=== PATIENT | male | born 1985 | race Caucasian/White ===

== ENCOUNTER 2017-09-11 19:15 | Emergency (ER) | payer BC, OTHER ==
[2017-09-11 19:47] VITALS: BP 155/94
[2017-09-11] MEDS ORDERED: Azithromycin TAB* 250 MG PO ONE (21:29)
--- NOTE | 2017-09-11 21:29 | UC ---
Throat Pain/Nasal [place] HPI - HPI Summary HPI Summary: Pt c/o nasal congestion, cough, sore throat, PND, chills and generalized malaise. - History of Current Complaint Chief Complaint: UCRespiratory Stated Complaint: ST, COUGH Time Seen by Provider: 09/11/17 21:19 Hx Obtained From: Patient Onset/Duration: Gradual Onset, Lasting Days Severity: Moderate Cough: Nonproductive Associated Signs & Symptoms: Positive: Dysphagia - Epiglottits Risk Factors Epiglottis Risk Factors: Negative - Allergies/Home Medications Allergies/Adverse Reactions: Allergies Allergy/AdvReac Type Severity Reaction Status Date / Time Amoxicillin Allergy Intermediate Rash Verified 09/11/17 19:41 PMH/Surg Hx/FS Hx/Imm Hx Previously Healthy: Yes - Surgical History Surgical History: Yes Surgery Procedure, Year, and Place: SHOULDER SURGERY - Family History Known Family History: Positive: Cardiac Disease - Social History Occupation: Employed Full-time Lives: With Family Alcohol Use: Occasionally Substance Use Type: None Smoking Status (MU): Never Smoked Tobacco Have You Smoked in the Last Year: No - Immunization History Most Recent Influenza Vaccination: NONE 2017 Review of Systems Constitutional: Chills, Fatigue Skin: Negative Eyes: Negative ENT: Sore Throat, Sinus Congestion Respiratory: Cough Cardiovascular: Negative Gastrointestinal: Negative Genitourinary: Negative Motor: Negative Neurovascular: Negative Musculoskeletal: Negative Neurological: Negative Psychological: Negative Is Patient Immunocompromised?: No All Other Systems Reviewed And Are Negative: Yes Physical Exam Triage Information Reviewed: Yes Appearance: Ill-Appearing Vital Signs: Initial Vital Signs Temp 99.8 F 09/11/17 19:42 Pulse 109 09/11/17 19:42 Resp 16 09/11/17 19:42 BP 155/94 09/11/17 19:42 Pulse Ox 99 09/11/17 19:42 Vital Signs Reviewed: Yes Eye Exam: Normal ENT: Positive: Nasal congestion, Tonsillar swelling Dental Exam: Normal Neck exam: Normal Neck: Positive: 1 Respiratory Exam: Normal Cardiovascular Exam: Normal Abdominal Exam: Normal Musculoskeletal Exam: Normal Neurological Exam: Normal Psychological Exam: Normal Skin Exam: Normal Throat Pain/Nasal Course/Dx - Differential Dx/Diagnosis Differential Diagnosis/HQI/PQRI: Tonsillitis, URI Provider Diagnoses: strep throat Discharge - Discharge Plan Condition: Stable Disposition: HOME Prescriptions: Azithromycin [Azithromycin 500 MG TAB] 500 mg PO DAILY #4 tab Patient Education Materials: Strep Throat (ED) Referrals: No Primary Care Phys,NOPCP [Primary Care Provider] - If Needed
== END 2017-09-11 21:37 | disposition home or self-care (01) ==
LOC: UCCORT 19:15
DX: J02.0 Streptococcal pharyngitis (principal); Z88.1 Allergy status to other antibiotic agents
CPT/HCPCS: 87651; 99202; A9270-GY; G0463

== ENCOUNTER 2018-12-29 19:23 | Emergency (ER) | payer BC, OTHER ==
--- NOTE | 2018-12-29 20:40 | UC ---
Eye Complaint HPI - HPI Summary HPI Summary: Per building code inspector "seen by opthalmology 12/26/18 for right eye redness, dx'd with bacterial conjuctivitis, treated with Polytrim eye drops, pt lost eye drops but refilled them 12/28 am, using drops q4h, no h/o injury, no corneal abrasion reported by MD, pt called opthalmology today, was given Rx for an eye drop with steroid in it but pt hasn't started yet, also was told to be re- evaluated for sepsis -continues to have redness of right eye, fever started today; otherwise feels well" -admits that Dr Milligan may have told him to go to the ER but did not specify which one. -son has sinus infection +mild body aches -appetite is fine. -sx are now starting on left eye as well. - History of Current Complaint Chief Complaint: UCEye Stated Complaint: RIGHT EYE COMPLAINT Time Seen by Provider: 12/29/18 20:29 Pain Intensity: 4 - Allergies/Home Medications Allergies/Adverse Reactions: Allergies Allergy/AdvReac Type Severity Reaction Status Date / Time amoxicillin Allergy Intermediate Rash Verified 12/29/18 20:14 Home Medications: Home Medications Polymyx/Trimethoprim OPTH* [Polytrim OPHTH*] 1 drop RIGHT EYE Q4H 12/29/18 [ History Confirmed 12/29/18] PMH/Surg Hx/FS Hx/Imm Hx Previously Healthy: Yes - Surgical History Surgical History: Yes Surgery Procedure, Year, and Place: SHOULDER SURGERY - Family History Known Family History: Positive: Cardiac Disease - Social History Alcohol Use: Occasionally Substance Use Type: None Smoking Status (MU): Never Smoked Tobacco Have You Smoked in the Last Year: No - Immunization History Most Recent Influenza Vaccination: NONE 2016 Review of Systems All Other Systems Reviewed And Are Negative: Yes Constitutional: Positive: Negative Skin: Positive: Negative Eyes: Positive: Blurred Vision, Drainage, Eye Redness, Other - no pain with moving his eyes. drops have helped soothe the pain ENT: Positive: Sore Throat Respiratory: Positive: Negative. Negative: Shortness Of Breath, Cough Cardiovascular: Positive: Negative Gastrointestinal: Positive: Negative Genitourinary: Positive: Negative Motor: Positive: Negative Neurovascular: Positive: Negative Musculoskeletal: Positive: Negative Neurological: Positive: Negative Psychological: Positive: Negative Is Patient Immunocompromised?: No Physical Exam Triage Information Reviewed: Yes Appearance: Well-Appearing, No Pain Distress, Well-Nourished Vital Signs: Initial Vital Signs Temp 100.5 F 12/29/18 20:07 Pulse 98 12/29/18 20:07 Resp 18 12/29/18 20:07 BP 135/101 12/29/18 20:07 Pulse Ox 100 12/29/18 20:07 Vital Signs Reviewed: Yes Eyes: Positive: Conjunctiva Inflamed - significant scleraal erythema entire eye on right, mild on left. EOMI. PERRL. + watery dc. ENT Exam: Normal ENT: Positive: Pharynx normal, TMs normal Dental Exam: Normal Neck exam: Normal Neck: Positive: Supple, Nontender Respiratory Exam: Normal, Other Respiratory: Positive: Lungs clear, Normal breath sounds, No respiratory distress, No accessory muscle use. Negative: Crackles, Rhonchi, Stridor, Wheezing Cardiovascular Exam: Normal Cardiovascular: Positive: RRR, No Murmur Abdomen Description: Positive: Nontender, Soft Musculoskeletal Exam: Normal Neurological Exam: Normal Psychological Exam: Normal Skin Exam: Normal Eye Complaint Course/Dx - Course Course Of Treatment: Rapid flu to r/o cause of body aches. negative. - recommend ER for eval for sepsis per his accounts receivable associate Dr Milligan. - elevated Blood pressure needs to be re-eval by a PCP. -he declines going to [place] and prefers to go to [facility] (ophto available). -OS: 20/20. -OD: 20/ 40. -OU 20/25. -rpt vitals improved BP 140/80, temp 102.7. -will give apap here - Differential Dx/Diagnosis Differential Diagnosis/HQI/PQRI: Conjunctivitis, Periorbital Cellulitis Provider Diagnosis: Conjunctivitis Discharge - Sign-Out/Discharge Documenting (check all that apply): Patient Departure All imaging exams completed and their final reports reviewed: No Studies - Discharge Plan Condition: Fair Disposition: HOME-RECOMMEND TO ED Patient Education Materials: Orbital Cellulitis (ED) Referrals: No Primary Care Phys,NOPCP [Primary Care Provider] - Layla Herrera [Nurse Practitioner] - Additional Instructions: Please go directly to the [facility] ER where ophthalmology is available. Do not stop at home or anywhere else. We discussed the importance of evaluation immediately in the ER. We discussed the risk of visual impairment/loss and need for urgent evaluation that we cannot accommodate at this facility. - Billing Disposition and Condition Condition: FAIR Disposition: Home-Recommend to ED
[2018-12-29 21:07] LABS: Influenza A Molecular NEGATIVE (Negative); Influenza B Molecular NEGATIVE (Negative)
[2018-12-29] MEDS ORDERED: Acetaminophen TAB* 325 MG PO ONE (21:14)
[2018-12-29 21:17] VITALS: BP 143/81
== END 2018-12-29 21:23 | disposition home health service (06) ==
LOC: UCCORT 19:23
DX: H10.9 Unspecified conjunctivitis (principal); Z88.0 Allergy status to penicillin
CPT/HCPCS: 99213; A9270-GY; G0463